=== PATIENT | female | born 1960 | race Caucasian/White ===

== ENCOUNTER 2017-10-24 18:40 | Emergency (ER) | payer BC ==
[2017-10-24] MEDS ORDERED: Tetracaine 0.5% OPHTH SOLN/PF 4 ML BOT ONE (18:50)
[2017-10-24] MEDS ORDERED: HYDROcodone/Acetaminophen 10/325 mg Tablet ONE (19:32)
== END 2017-10-24 20:33 | disposition home or self-care (01) ==
LOC: MADERS 18:40
DX: S05.11XA Contusion of eyeball and orbital tissues, right eye, initial encounter (principal); S00.211A Abrasion of right eyelid and periocular area, initial encounter; E78.5 Hyperlipidemia, unspecified; W22.8XXA Striking against or struck by other objects, initial encounter
CPT/HCPCS: 99284

== ENCOUNTER 2025-03-25 15:35 | Emergency (ER) | payer BC, OTHER ==
[2025-03-25] MEDS ORDERED: Lidocaine 1%/Epinephrine 1:100K 10 ML VIAL ONE (15:48)
[2025-03-25] MEDS ORDERED: Bacitracin 1 PK ONE (15:48)
[2025-03-25] MEDS ORDERED: Boostrix 0.5 ML (Tdap) VIAL (>/=7 yrs of age) ONE (15:49)
== END 2025-03-25 16:30 | disposition home or self-care (01) ==
LOC: MADERS 15:35
DX: S51.811A Laceration without foreign body of right forearm, initial encounter (principal); Z23 Encounter for immunization; W26.8XXA Contact with other sharp object(s), not elsewhere classified, initial encounter
CPT/HCPCS: 12001; 90471; 90715